=== PATIENT | female | born 1935 | race Caucasian/White ===

== ENCOUNTER 2016-10-18 17:51 | Inpatient (IN) | payer OTHER ==
[~2016-10-18] VITALS: Ht 165.1 cm; Wt 82.7 kg
[~2016-10-18 17:51] MED LIST: ALLOPURINOL300 MG PO; ATIVAN0.5 MG PO; BUSPAR5 MG PO; CALCITRATE + D1 EACH PO; CELEXA10 MG PO; CHILDREN'S ASPI81 M1 PO; COLACE100 MG PO; COLCRYS0.6 MG PO; DUONEB 2.5-0.5 M3 ML AEROSOL; Ecotrin PO; KEFLEX500 MG PO; LEVOTHYROXINE150 MCG PO; LITE COAT ASPI325 M1 PO; LOPRESSOR50 MG PO; LOSARTAN POTAS100 MG PO; LOSARTAN POTASS50 MG PO; METOPROLOL SUCC50 MG PO; METOPROLOL TART50 MG PO; MILK OF MAGNESI10 ML PO; PRAVASTATIN SOD80 MG PO; SENNA8.6 M1 PO; SIMVASTATIN20 MG PO; TAMIFLU30 MG PO; TYLENOL REGULA325 MG PO; UTYMAX POWDER1 EACH PO; Zyloprim PO
[2016-10-18 18:24] LABS: BASE EXCESS 3.9 mEq/L (-3 to +3); BICARBONATE 27.7 mEq/L (22-26); CARBOXY HGB 2.1 % (0-5); METHEMOGLOBIN 1.5 % (0-1.5); PCO2 38 mm Hg (35-45); PO2 121 mm Hg (80-100); pH 7.47 (7.35-7.45)
[2016-10-18 18:25] LABS: COMMENTS - BLOOD GASES A+C+; DEVICE SIMPLE MASK; O2 FLOW 3 L/MIN; SITE LR
[2016-10-18 18:41] LABS: CARBON DIOXIDE (BICARBONATE) 30.5 MEQ/L (20-31)
[2016-10-18 18:42] LABS: HEMATOCRIT 36.2 % (36.0-46.0); MCH 30.6 PG (29.0-34.0); MCHC 32.6 G/DL (30.0-36.0); MEAN PLAT.VOLUME 11.6 uM^3 (9.5-12.4); PLATELET COUNT 113 K/uL (156-360); RBC DIS.WIDTH-CV 14.4 % (11.8-14.6); RBC DIS.WIDTH-SD 47.7 % (39-53); RED BLOOD COUNT 3.85 M/uL (3.80-5.20); WHITE BLOOD COUNT 25.7 K/uL (4.1-10.2)
[2016-10-18 18:49] LABS: CHLORIDE 105 mEq/L (99-109); POTASSIUM 3.6 mEq/L (3.7-5.4); SODIUM 142 mEq/L (136-147)
[2016-10-18 18:50] LABS: GLUCOSE 229 mg/dL (70-99)
[2016-10-18 18:52] LABS: ANION GAP 12 MEQ/L (2-14)
[2016-10-18 18:54] LABS: GFR ESTIMATE (CALCULATED) 23 mL/min/
[2016-10-18 18:55] LABS: UREA NITROGEN (BUN) 57 mg/dL (9-23)
[2016-10-18 19:03] LABS: TROP-I INTERPRETATION NEGATIVE; TROPONIN-I 0.22 ng/mL (0.0-0.30)
[2016-10-18] MEDS ORDERED: TOPROL XL100 MG PO (19:30)
[2016-10-18] MEDS ORDERED: MIRALAX17 GM PO (19:30)
[2016-10-18] MEDS ORDERED: SENNA8.6 MG PO (19:31)
[2016-10-18] MEDS ORDERED: FLEET ENEMA-AD118 ML PR (19:33)
[2016-10-18] MEDS ORDERED: DUONEB 2.5-0.5 M3 ML AEROSOL (19:35)
[2016-10-18] MEDS ORDERED: LEVO-T175 MCG PO (19:39)
[2016-10-18] MEDS ORDERED: ROCEPHIN1000 MG IM (19:45)
[2016-10-18] MEDS ORDERED: MILK OF MAGN PO (19:48)
[2016-10-18 20:15] LABS: ADD MIUA? YES; BILIRUBIN SMALL; BLOOD LARGE; GLUCOSE (STRIP) NEGATIVE; KETONES TRACE; LEUKOCYTES MODERATE; NITRITE POSITIVE; PROTEIN (STRIP) 100; SPECIFIC GRAVITY 1.025 (1.000-1.030)
[2016-10-18 20:22] LABS: COLOR AMBER ((YELLOW))
[2016-10-18 20:59] LABS: AMORPHOUS URATES CRYSTALS 1+; BACTERIA 1+; CASTS PRESENT /LPF; CRYSTALS PRESENT; EPITHELIAL CELLS 3+; MUCUS TRACE; UCUL ADDED? NO; WHITE BLOOD CELLS 20-30 /HPF (0-5)
[2016-10-18 23:15] VITALS: BP 134/70
[2016-10-18 23:30] VITALS: BP 134/70
[2016-10-19 04:00] VITALS: BP 115/57
[2016-10-19 06:37] LABS: HEMATOCRIT 33.5 % (36.0-46.0); MCH 30.1 PG (29.0-34.0); MCHC 31.9 G/DL (30.0-36.0); MCV 94.1 FL (83-99); MEAN PLAT.VOLUME 12.2 uM^3 (9.5-12.4); PLATELET COUNT 102 K/uL (156-360); RBC DIS.WIDTH-CV 14.7 % (11.8-14.6); RBC DIS.WIDTH-SD 50.8 % (39-53); RED BLOOD COUNT 3.56 M/uL (3.80-5.20); WHITE BLOOD COUNT 18.1 K/uL (4.1-10.2)
[2016-10-19 07:03] LABS: ANION GAP 10 MEQ/L (2-14); CHLORIDE 112 MEQ/L (99-109); GFR ESTIMATE (CALCULATED) 23 mL/min/; POTASSIUM 3.3 MEQ/L (3.7-5.4); SAMPLE HEMOLYSIS CHECK 0; SAMPLE ICTERIC CHECK 0; SAMPLE LIPEMIA CHECK 0; SODIUM 146 MEQ/L (136-147); UREA NITROGEN (BUN) 59 mg/dL (9-23)
[2016-10-19 07:05] LABS: GLUCOSE 106 mg/dL (70-99)
[2016-10-19 08:30] VITALS: BP 118/58
[2016-10-19 10:48] LABS: MAGNESIUM 2.3 mg/dl (1.3-2.7)
[2016-10-19 12:00] VITALS: BP 142/71
[2016-10-19 16:00] VITALS: BP 154/69
[2016-10-19 17:43] LABS: UR CREATININE CONCENTRATION 136.5 MG/DL
[2016-10-19 20:25] VITALS: BP 137/74
[2016-10-19 21:37] LABS: METH RESISTANT S AUREUS PCR NEGATIVE (NEGATIVE)
[2016-10-19 21:40] LABS: PROBE CHECK PASS; SPECIMEN PROCESSING CONTROL PASS
[2016-10-19 23:55] VITALS: BP 147/68
[2016-10-20 04:00] VITALS: BP 153/68
[2016-10-20 07:15] LABS: EOSINOPHIL (%) 0.4 % (0-5); EOSINOPHIL COUNT 0.1 K/uL (0-0.3); HEMATOCRIT 32.4 % (36.0-46.0); IMMATURE GRANULOCYTE (%) 0.5 % (0.0-0.7); IMMATURE GRANULOCYTE COUNT 0.1 K/uL; LYMPHOCYTE COUNT 1.5 K/uL (1.0-2.8); MCH 30.4 PG (29.0-34.0); MCHC 32.4 G/DL (30.0-36.0); MCV 93.9 FL (83-99); MEAN PLAT.VOLUME 11.9 uM^3 (9.5-12.4); MONOCYTE (%) 6.4 % (3-12); MONOCYTE COUNT 0.9 K/uL (0-0.8); NEUTROPHIL (%) 81.6 % (45-76); NEUTROPHIL COUNT 11.4 K/uL (1.8-6.4); PLATELET COUNT 115 K/uL (156-360); RBC DIS.WIDTH-CV 14.8 % (11.8-14.6); RED BLOOD COUNT 3.45 M/uL (3.80-5.20)
[2016-10-20 07:59] LABS: ANION GAP 11 MEQ/L (2-14); CHLORIDE 113 MEQ/L (99-109); GLUCOSE 108 mg/dL (70-99); SAMPLE HEMOLYSIS CHECK 0; SAMPLE ICTERIC CHECK 0; SAMPLE LIPEMIA CHECK 0; SODIUM 147 MEQ/L (136-147); UREA NITROGEN (BUN) 54 mg/dL (9-23)
[2016-10-20 08:00] VITALS: BP 167/74
[2016-10-20 08:01] LABS: GFR ESTIMATE (CALCULATED) 33 mL/min/
[2016-10-20 11:37] VITALS: BP 148/67
[2016-10-20 16:30] VITALS: BP 184/85
[2016-10-20 19:08] VITALS: BP 172/76
[2016-10-20 23:35] VITALS: BP 185/81
[2016-10-21 04:26] VITALS: BP 149/81
[2016-10-21 06:43] LABS: EOSINOPHIL (%) 1.3 % (0-5); EOSINOPHIL COUNT 0.2 K/uL (0-0.3); HEMATOCRIT 33.3 % (36.0-46.0); IMMATURE GRANULOCYTE (%) 0.5 % (0.0-0.7); IMMATURE GRANULOCYTE COUNT 0.1 K/uL; LYMPHOCYTE COUNT 1.3 K/uL (1.0-2.8); MCH 30.4 PG (29.0-34.0); MCHC 32.7 G/DL (30.0-36.0); MCV 92.8 FL (83-99); MONOCYTE (%) 8.5 % (3-12); NEUTROPHIL (%) 78.4 % (45-76); NEUTROPHIL COUNT 9.4 K/uL (1.8-6.4); RBC DIS.WIDTH-CV 14.6 % (11.8-14.6); RBC DIS.WIDTH-SD 50.2 % (39-53); RED BLOOD COUNT 3.59 M/uL (3.80-5.20); WHITE BLOOD COUNT 12.1 K/uL (4.1-10.2)
[2016-10-21 06:58] LABS: MEAN PLAT.VOLUME 12.1 uM^3 (9.5-12.4)
[2016-10-21 07:00] LABS: PLATELET COUNT 155 K/uL (156-360)
[2016-10-21 07:10] LABS: ANION GAP 8 MEQ/L (2-14); CHLORIDE 113 MEQ/L (99-109); GFR ESTIMATE (CALCULATED) 38 mL/min/; GLUCOSE 142 mg/dL (70-99); POTASSIUM 3.7 MEQ/L (3.7-5.4); SAMPLE HEMOLYSIS CHECK 0; SAMPLE ICTERIC CHECK 0; SAMPLE LIPEMIA CHECK 0; SODIUM 145 MEQ/L (136-147); UREA NITROGEN (BUN) 38 mg/dL (9-23)
[2016-10-21 07:54] VITALS: BP 145/70
[2016-10-21 12:20] VITALS: BP 156/80
[2016-10-21 15:40] VITALS: BP 162/74
[2016-10-21 19:36] VITALS: BP 184/70
[2016-10-22] VITALS (10 sets, daily range): BP systolic 160–198; BP diastolic 68–87
[2016-10-22 06:59] LABS: HEMATOCRIT 32.4 % (36.0-46.0); MCH 30.2 PG (29.0-34.0); MCHC 32.7 G/DL (30.0-36.0); MCV 92.3 FL (83-99); MEAN PLAT.VOLUME 11.9 uM^3 (9.5-12.4); PLATELET COUNT 163 K/uL (156-360); RBC DIS.WIDTH-CV 14.6 % (11.8-14.6); RBC DIS.WIDTH-SD 49.6 % (39-53); RED BLOOD COUNT 3.51 M/uL (3.80-5.20); WHITE BLOOD COUNT 9.9 K/uL (4.1-10.2)
[2016-10-22 07:27] LABS: ANION GAP 9 MEQ/L (2-14); CHLORIDE 108 MEQ/L (99-109); GFR ESTIMATE (CALCULATED) 42 mL/min/; GLUCOSE 137 mg/dL (70-99); POTASSIUM 3.5 MEQ/L (3.7-5.4); SAMPLE HEMOLYSIS CHECK 0; SAMPLE ICTERIC CHECK 0; SAMPLE LIPEMIA CHECK 0; SODIUM 139 MEQ/L (136-147); UREA NITROGEN (BUN) 26 mg/dL (9-23)
[2016-10-22 07:31] LABS: EOSINOPHIL (%) 2.8 % (0-5); EOSINOPHIL COUNT 0.3 K/uL (0-0.3); IMMATURE GRANULOCYTE (%) 2.3 % (0.0-0.7); IMMATURE GRANULOCYTE COUNT 0.2 K/uL; LYMPHOCYTE COUNT 1.5 K/uL (1.0-2.8); MONOCYTE (%) 11.5 % (3-12); MONOCYTE COUNT 1.1 K/uL (0-0.8); NEUTROPHIL (%) 68.4 % (45-76); NEUTROPHIL COUNT 6.8 K/uL (1.8-6.4)
[2016-10-22 07:33] LABS: HEMATOLOGY COMMENT 1 SMEAR COMPATIBLE; USER ID SDF
[2016-10-23 04:27] VITALS: BP 172/77
[2016-10-23 06:38] LABS: ANION GAP 8 MEQ/L (2-14); CHLORIDE 111 MEQ/L (99-109); GFR ESTIMATE (CALCULATED) 42 mL/min/; GLUCOSE 124 mg/dL (70-99); POTASSIUM 3.7 MEQ/L (3.7-5.4); SAMPLE HEMOLYSIS CHECK 0; SAMPLE ICTERIC CHECK 0; SAMPLE LIPEMIA CHECK 0; SODIUM 141 MEQ/L (136-147); UREA NITROGEN (BUN) 19 mg/dL (9-23)
[2016-10-23 06:48] LABS: MAGNESIUM 1.8 mg/dl (1.3-2.7)
[2016-10-23 08:48] VITALS: BP 162/73
[2016-10-23 15:58] LABS: INFLUENZA A VIRAL ANTIGEN NEGATIVE; INFLUENZA B VIRAL ANTIGEN NEGATIVE
[2016-10-23 16:24] VITALS: BP 143/71
[2016-10-24] VITALS: BP 173/79
[2016-10-24 03:45] VITALS: BP 169/80
[2016-10-24 06:24] LABS: HEMATOCRIT 32.9 % (36.0-46.0); MCH 30.2 PG (29.0-34.0); MCHC 32.8 G/DL (30.0-36.0); MCV 91.9 FL (83-99); RBC DIS.WIDTH-CV 14.5 % (11.8-14.6); RBC DIS.WIDTH-SD 48.7 % (39-53); RED BLOOD COUNT 3.58 M/uL (3.80-5.20); WHITE BLOOD COUNT 12.1 K/uL (4.1-10.2)
[2016-10-24 06:45] LABS: MEAN PLAT.VOLUME 10.9 uM^3 (9.5-12.4)
[2016-10-24 07:01] LABS: ANION GAP 8 MEQ/L (2-14); CHLORIDE 108 MEQ/L (99-109); GFR ESTIMATE (CALCULATED) 57 mL/min/; GLUCOSE 111 mg/dL (70-99); POTASSIUM 3.7 MEQ/L (3.7-5.4); SAMPLE HEMOLYSIS CHECK 0; SAMPLE ICTERIC CHECK 0; SAMPLE LIPEMIA CHECK 0; SODIUM 139 MEQ/L (136-147); UREA NITROGEN (BUN) 12 mg/dL (9-23)
[2016-10-24 07:05] LABS: PLATELET COUNT 243 K/uL (156-360)
[2016-10-24 07:23] LABS: BASOPHIL COUNT 0.1 K/uL (0-0.1); EOSINOPHIL (%) 3.4 % (0-5); EOSINOPHIL COUNT 0.4 K/uL (0-0.3); HEMATOLOGY COMMENT 1 SMEAR COMPATIBLE; IMMATURE GRANULOCYTE (%) 3.8 % (0.0-0.7); IMMATURE GRANULOCYTE COUNT 0.5 K/uL; MONOCYTE (%) 9.6 % (3-12); MONOCYTE COUNT 1.2 K/uL (0-0.8); NEUTROPHIL (%) 65.9 % (45-76); USER ID SDF
[2016-10-24 07:41] LABS: INTERNAL CONTROL VALID? YES
[2016-10-24 07:44] VITALS: BP 179/80
[2016-10-24] MEDS ORDERED: ATIVAN0.5 MG PO (12:16)
[2016-10-24] MEDS ORDERED: CIPRO250 MG PO (12:19)
[2016-10-24] MEDS ORDERED: AMLODIPINE BESYL5 MG PO (12:44)
== END 2016-10-24 15:45 | DRG 871 ==
LOC: EME 17:51 → 3EAST 19:11 → EDOF 19:11 → 4EAST 19:11 → 3EAST 10-22 23:00
PROVIDERS: Emergency Medicine; Family Medicine; Internal Medicine
DX: A41.9 Sepsis, unspecified organism (principal); N17.0 Acute kidney failure with tubular necrosis; E87.0 Hyperosmolality and hypernatremia; E87.2 Acidosis; N39.0 Urinary tract infection, site not specified; D64.9 Anemia, unspecified; I10 Essential (primary) hypertension; F03.90 Unspecified dementia, unspecified severity, without behavioral disturbance, psychotic disturbance, mood disturbance, and anxiety; E03.9 Hypothyroidism, unspecified; Z86.73 Personal history of transient ischemic attack (TIA), and cerebral infarction without residual deficits; E78.5 Hyperlipidemia, unspecified; E87.6 Hypokalemia; I73.9 Peripheral vascular disease, unspecified; I77.89 Other specified disorders of arteries and arterioles; E83.39 Other disorders of phosphorus metabolism; E83.51 Hypocalcemia; R41.82 Altered mental status, unspecified; E86.0 Dehydration
CPT/HCPCS: 36600; 71020; 76770; 80048; 80048 91; 80069; 81003; 82330; 82436; 82570; 82803; 83605; 83735; 83880; 84156; 84300; 84484; 85025; 85025 91; 85027; 87040; 87449; 87502; 87641; 93005; 94640; 94799; 99202; 99281; 99285; J0360; J1650; J2543; J3480; J7030; J7050

== ENCOUNTER 2018-01-02 20:46 | Inpatient (IN) | payer OTHER ==
[~2018-01-02] VITALS: Ht 162.6 cm; Wt 77.5 kg
[~2018-01-02 20:46] MED LIST changes: +AMLODIPINE BESYL5 MG PO; +CIPRO250 MG PO; +FLEET ENEMA-AD118 ML PR; +LEVO-T175 MCG PO; +MILK OF MAGN PO; +MIRALAX17 GM PO; +ROCEPHIN1000 MG IM; +SENNA8.6 MG PO; +TOPROL XL100 MG PO
[2018-01-02 21:27] LABS: HEMATOCRIT 35.2 % (36.0-46.0); HEMOGLOBIN 11.7 G/DL (11.9-15.5); MCHC 33.2 G/DL (30.0-36.0); MCV 93.4 FL (83-99); PLATELET COUNT 154 K/uL (156-360); RBC DIS.WIDTH-CV 13.9 % (11.8-14.6); RBC DIS.WIDTH-SD 47.3 % (39-53); RED BLOOD COUNT 3.77 M/uL (3.80-5.20); WHITE BLOOD COUNT 24.5 K/uL (4.1-10.2)
[2018-01-02 21:43] LABS: CHLORIDE 109 mEq/L (99-109); POTASSIUM 3.5 mEq/L (3.7-5.4); SODIUM 144 mEq/L (136-147)
[2018-01-02 21:45] LABS: GLUCOSE 178 mg/dL (70-99)
[2018-01-02 21:48] LABS: CREATININE 1.6 mg/dL (0.6-1.3); GFR ESTIMATE (CALCULATED) 33 mL/min/
[2018-01-02 21:49] LABS: UREA NITROGEN (BUN) 41 mg/dL (9-23)
[2018-01-02 22:29] LABS: ABS NEUTROPHIL COUNT 23.1; ANISOCYTOSIS 1+; ATYPICAL LYMPHOCYTE 1.3 %; BAND NEUTROPHILS 15.6 % (0-8.0); EOSINOPHIL ABS CT 0; LYMPHOCYTES 2.2 % (15.0-45.0); MONOCYTES 2.2 % (0-9.0); PLAT.SUFFICIENCY ADEQUATE; POIKILOCYTOSIS 1+; POLYCHROMASIA 1+; SEG.NEUTROPHILS 78.7 % (46.0-76.0)
[2018-01-03 03:18] LABS: APPEARANCE TURBID ((CLEAR)); BILIRUBIN NEGATIVE; BLOOD MODERATE; COLOR AMBER ((YELLOW)); GLUCOSE (STRIP) NEGATIVE; KETONES NEGATIVE; LEUKOCYTES LARGE; NITRITE NEGATIVE; PROTEIN (STRIP) 100; SPECIFIC GRAVITY 1.018 (1.000-1.030); UROBILINOGEN 0.2 MG/DL (0.2-1.0)
[2018-01-03 03:31] LABS: BACTERIA 2+ /HPF; EPITHELIAL CELLS 1+ /HPF; MUCUS NONE SEEN /LPF; RED BLOOD CELLS 30-40 /HPF (0-5); UCUL ADDED? YES; WHITE BLOOD CELLS NONE SEEN /HPF (0-5)
[2018-01-03 03:32] LABS: COARSE GRANULAR CASTS 0-5 /LPF; FINE GRANULAR CASTS 0-5 /LPF
[2018-01-03 08:42] VITALS: BP 116/67
[2018-01-03] MEDS ORDERED: ATIVAN0.5 MG PO ×2 (09:34→09:35)
[2018-01-03] MEDS ORDERED: ARICEPT5 MG PO (09:37)
[2018-01-03 10:45] VITALS: BP 103/57
[2018-01-03 11:02] LABS: HEMATOCRIT 40.5 % (36.0-46.0); HEMOGLOBIN 12.7 G/DL (11.9-15.5); MCH 30.8 PG (29.0-34.0); MCHC 31.4 G/DL (30.0-36.0); PLATELET COUNT 135 K/uL (156-360); RBC DIS.WIDTH-CV 14.4 % (11.8-14.6); RBC DIS.WIDTH-SD 51.6 % (39-53); RED BLOOD COUNT 4.13 M/uL (3.80-5.20); WHITE BLOOD COUNT 20.5 K/uL (4.1-10.2)
[2018-01-03 11:29] VITALS: BP 103/57
[2018-01-03 11:31] LABS: ALKALINE PHOSPHATASE 76 IU/L (3-129); AST (GOT) 51 IU/L (2-34); CHLORIDE 109 MEQ/L (99-109); CREATININE 1.6 MG/DL (0.6-1.3); GFR ESTIMATE (CALCULATED) 33 mL/min/; GLUCOSE 83 mg/dL (70-99); POTASSIUM 4.4 MEQ/L (3.7-5.4); SODIUM 143 MEQ/L (136-147); TOTAL BILIRUBIN 0.6 MG/DL (0.0-1.0); TOTAL PROTEIN 5.9 G/DL (6.4-8.3); UREA NITROGEN (BUN) 39 mg/dL (9-23)
[2018-01-03 11:40] LABS: MCV 98.1 FL (83-99)
[2018-01-03 12:34] LABS: ALT (GPT) 17 IU/L (3-49)
[2018-01-03 15:00] VITALS: BP 88/52
[2018-01-03 20:00] VITALS: BP 85/55
[2018-01-03 22:04] LABS: INTER. NORMALIZED RATIO 1.2
[2018-01-03 22:06] LABS: PTT 27.9 SEC (25-37)
[2018-01-04 00:20] VITALS: BP 109/49
[2018-01-04 04:32] VITALS: BP 111/72
[2018-01-04 08:40] VITALS: BP 103/75
[2018-01-04 12:31] VITALS: BP 92/61
[2018-01-04 16:30] VITALS: BP 107/64
[2018-01-04 19:38] VITALS: BP 93/67
[2018-01-05] VITALS (7 sets, daily range): BP systolic 104–124; BP diastolic 58–76
[2018-01-06 03:28] VITALS: BP 112/77
[2018-01-06 06:19] LABS: BASOPHIL (%) 0.2 % (0-1); EOSINOPHIL (%) 0.4 % (0-5); EOSINOPHIL COUNT 0.1 K/uL (0-0.3); HEMATOCRIT 33.9 % (36.0-46.0); HEMOGLOBIN 10.8 G/DL (11.9-15.5); IMMATURE GRANULOCYTE (%) 0.7 % (0.0-0.7); LYMPHOCYTE (%) 9.1 % (15-42); LYMPHOCYTE COUNT 1.2 K/uL (1.0-2.8); MCH 29.7 PG (29.0-34.0); MCHC 31.9 G/DL (30.0-36.0); MONOCYTE (%) 9.2 % (3-12); MONOCYTE COUNT 1.2 K/uL (0-0.8); NEUTROPHIL (%) 80.4 % (45-76); NEUTROPHIL COUNT 10.7 K/uL (1.8-6.4); PLATELET COUNT 129 K/uL (156-360); RBC DIS.WIDTH-CV 14.6 % (11.8-14.6); RBC DIS.WIDTH-SD 49.6 % (39-53); RED BLOOD COUNT 3.64 M/uL (3.80-5.20); WHITE BLOOD COUNT 13.3 K/uL (4.1-10.2)
[2018-01-06 06:20] LABS: MCV 93.1 FL (83-99)
[2018-01-06 06:37] LABS: ALKALINE PHOSPHATASE 63 IU/L (3-129)
[2018-01-06 08:41] VITALS: BP 144/70
[2018-01-06 11:08] LABS: ALBUMIN 2.6 G/DL (3.2-4.8); ALT (GPT) 18 IU/L (3-49); CREATININE 1.4 MG/DL (0.6-1.3); GFR ESTIMATE (CALCULATED) 38 mL/min/; POTASSIUM 3.6 MEQ/L (3.7-5.4); TOTAL BILIRUBIN 0.5 MG/DL (0.0-1.0); UREA NITROGEN (BUN) 44 mg/dL (9-23)
[2018-01-06 11:13] LABS: AST (GOT) 19 IU/L (2-34); CHLORIDE 121 MEQ/L (99-109); GLUCOSE 130 mg/dL (70-99); SODIUM 152 MEQ/L (136-147)
[2018-01-06 11:48] VITALS: BP 124/80
[2018-01-06 14:28] VITALS: BP 132/80
[2018-01-06 19:16] VITALS: BP 128/76
[2018-01-06 22:48] VITALS: BP 121/73
[2018-01-07 03:54] VITALS: BP 130/74
[2018-01-07 07:34] VITALS: BP 140/74
[2018-01-07 08:14] LABS: BASOPHIL (%) 0.2 % (0-1); EOSINOPHIL (%) 2.9 % (0-5); EOSINOPHIL COUNT 0.4 K/uL (0-0.3); HEMATOCRIT 32.9 % (36.0-46.0); HEMOGLOBIN 10.5 G/DL (11.9-15.5); IMMATURE GRANULOCYTE (%) 1.3 % (0.0-0.7); LYMPHOCYTE (%) 9.9 % (15-42); LYMPHOCYTE COUNT 1.3 K/uL (1.0-2.8); MCH 30.5 PG (29.0-34.0); MCHC 31.9 G/DL (30.0-36.0); MCV 95.6 FL (83-99); MONOCYTE (%) 10.5 % (3-12); MONOCYTE COUNT 1.3 K/uL (0-0.8); NEUTROPHIL (%) 75.2 % (45-76); NEUTROPHIL COUNT 9.5 K/uL (1.8-6.4); PLATELET COUNT 150 K/uL (156-360); RBC DIS.WIDTH-CV 14.9 % (11.8-14.6); RBC DIS.WIDTH-SD 52.2 % (39-53); RED BLOOD COUNT 3.44 M/uL (3.80-5.20); WHITE BLOOD COUNT 12.6 K/uL (4.1-10.2)
[2018-01-07 08:47] LABS: CHLORIDE 126 MEQ/L (99-109); CREATININE 1.2 MG/DL (0.6-1.3); GFR ESTIMATE (CALCULATED) 46 mL/min/; GLUCOSE 141 mg/dL (70-99); POTASSIUM 3.9 MEQ/L (3.7-5.4); SODIUM 155 MEQ/L (136-147); UREA NITROGEN (BUN) 36 mg/dL (9-23)
[2018-01-07 10:24] LABS: BASE EXCESS -0.7 mEq/L (-3 to +3); BICARBONATE 24.2 mEq/L (22-26); CARBOXY HGB 2.2 % (0-5); METHEMOGLOBIN 2.4 % (0-1.5); PCO2 40 mm Hg (35-45); PO2 97 mm Hg (80-100); pH 7.39 (7.35-7.45)
[2018-01-07 10:25] LABS: COMMENTS - BLOOD GASES A+C+; DEVICE NC; O2 FLOW 2 L/MIN; SITE LR; TOTAL RESP RATE 16 resp/min
[2018-01-07 12:00] VITALS: BP 143/64
[2018-01-07 15:44] VITALS: BP 128/76
[2018-01-07 20:12] VITALS: BP 108/60
[2018-01-08 00:38] VITALS: BP 128/78
[2018-01-08 04:19] VITALS: BP 138/72
[2018-01-08 06:20] LABS: BASOPHIL (%) 0.3 % (0-1); EOSINOPHIL (%) 4.6 % (0-5); EOSINOPHIL COUNT 0.5 K/uL (0-0.3); HEMATOCRIT 33.5 % (36.0-46.0); HEMOGLOBIN 10.7 G/DL (11.9-15.5); IMMATURE GRANULOCYTE (%) 1.6 % (0.0-0.7); LYMPHOCYTE (%) 13.2 % (15-42); LYMPHOCYTE COUNT 1.5 K/uL (1.0-2.8); MCH 30.5 PG (29.0-34.0); MCHC 31.9 G/DL (30.0-36.0); MCV 95.4 FL (83-99); MONOCYTE (%) 9.8 % (3-12); MONOCYTE COUNT 1.1 K/uL (0-0.8); NEUTROPHIL (%) 70.5 % (45-76); NEUTROPHIL COUNT 8.2 K/uL (1.8-6.4); RED BLOOD COUNT 3.51 M/uL (3.80-5.20); WHITE BLOOD COUNT 11.5 K/uL (4.1-10.2)
[2018-01-08 06:28] LABS: PLATELET COUNT 202 K/uL (156-360)
[2018-01-08 06:49] LABS: CHLORIDE 121 MEQ/L (99-109); CREATININE 1.1 MG/DL (0.6-1.3); GFR ESTIMATE (CALCULATED) 51 mL/min/; GLUCOSE 128 mg/dL (70-99); POTASSIUM 3.8 MEQ/L (3.7-5.4); SODIUM 155 MEQ/L (136-147); UREA NITROGEN (BUN) 30 mg/dL (9-23)
[2018-01-08 07:29] VITALS: BP 134/72
[2018-01-08 12:49] VITALS: BP 148/64
[2018-01-08 20:26] VITALS: BP 106/58
[2018-01-08 23:28] VITALS: BP 123/65
[2018-01-09 03:50] VITALS: BP 129/62
[2018-01-09 07:10] LABS: BASOPHIL (%) 0.3 % (0-1); EOSINOPHIL (%) 3.6 % (0-5); EOSINOPHIL COUNT 0.4 K/uL (0-0.3); HEMATOCRIT 34.2 % (36.0-46.0); HEMOGLOBIN 10.9 G/DL (11.9-15.5); IMMATURE GRANULOCYTE (%) 1.6 % (0.0-0.7); LYMPHOCYTE (%) 14.5 % (15-42); LYMPHOCYTE COUNT 1.5 K/uL (1.0-2.8); MCH 30.6 PG (29.0-34.0); MCHC 31.9 G/DL (30.0-36.0); MCV 96.1 FL (83-99); MONOCYTE (%) 8.9 % (3-12); MONOCYTE COUNT 0.9 K/uL (0-0.8); NEUTROPHIL (%) 71.1 % (45-76); NEUTROPHIL COUNT 7.1 K/uL (1.8-6.4); PLATELET COUNT 255 K/uL (156-360); RBC DIS.WIDTH-CV 14.6 % (11.8-14.6); RED BLOOD COUNT 3.56 M/uL (3.80-5.20)
[2018-01-09 07:30] LABS: CHLORIDE 120 MEQ/L (99-109); GFR ESTIMATE (CALCULATED) 57 mL/min/; GLUCOSE 155 mg/dL (70-99); POTASSIUM 3.6 MEQ/L (3.7-5.4); SODIUM 156 MEQ/L (136-147); UREA NITROGEN (BUN) 25 mg/dL (9-23)
[2018-01-09 09:22] VITALS: BP 136/72
[2018-01-09 12:13] VITALS: BP 140/78
[2018-01-09 15:39] VITALS: BP 138/70
[2018-01-09 20:07] VITALS: BP 135/75
[2018-01-10] VITALS: BP 115/57
[2018-01-10 03:55] VITALS: BP 125/84
[2018-01-10 07:08] LABS: BASOPHIL (%) 0.3 % (0-1); EOSINOPHIL (%) 3.5 % (0-5); EOSINOPHIL COUNT 0.3 K/uL (0-0.3); HEMATOCRIT 34.8 % (36.0-46.0); HEMOGLOBIN 11.1 G/DL (11.9-15.5); IMMATURE GRANULOCYTE (%) 2.2 % (0.0-0.7); LYMPHOCYTE (%) 17.9 % (15-42); LYMPHOCYTE COUNT 1.6 K/uL (1.0-2.8); MCH 30.4 PG (29.0-34.0); MCHC 31.9 G/DL (30.0-36.0); MCV 95.3 FL (83-99); MONOCYTE (%) 7.6 % (3-12); MONOCYTE COUNT 0.7 K/uL (0-0.8); NEUTROPHIL (%) 68.5 % (45-76); NEUTROPHIL COUNT 6.2 K/uL (1.8-6.4); PLATELET COUNT 310 K/uL (156-360); RBC DIS.WIDTH-CV 14.6 % (11.8-14.6); RBC DIS.WIDTH-SD 50.5 % (39-53); RED BLOOD COUNT 3.65 M/uL (3.80-5.20); WHITE BLOOD COUNT 9.1 K/uL (4.1-10.2)
[2018-01-10 07:12] LABS: CHLORIDE 117 MEQ/L (99-109); CREATININE 0.9 MG/DL (0.6-1.3); GFR ESTIMATE (CALCULATED) > 59 mL/min/; POTASSIUM 3.5 MEQ/L (3.7-5.4); SODIUM 154 MEQ/L (136-147); UREA NITROGEN (BUN) 19 mg/dL (9-23)
[2018-01-10 07:16] LABS: GLUCOSE 108 mg/dL (70-99)
[2018-01-10 11:13] VITALS: BP 106/62
[2018-01-10 16:00] VITALS: BP 108/62
[2018-01-10 19:00] VITALS: BP 125/72
[2018-01-11 00:15] VITALS: BP 128/67
[2018-01-11 03:20] VITALS: BP 122/78
[2018-01-11 08:12] LABS: CHLORIDE 115 MEQ/L (99-109); GFR ESTIMATE (CALCULATED) 57 mL/min/; GLUCOSE 112 mg/dL (70-99); POTASSIUM 3.4 MEQ/L (3.7-5.4); SODIUM 153 MEQ/L (136-147); UREA NITROGEN (BUN) 16 mg/dL (9-23)
[2018-01-11 09:10] VITALS: BP 128/78
[2018-01-11 12:33] VITALS: BP 128/59
[2018-01-11 17:43] VITALS: BP 129/58
[2018-01-12 00:05] VITALS: BP 115/57
[2018-01-12 07:01] LABS: BASOPHIL (%) 0.6 % (0-1); BASOPHIL COUNT 0.1 K/uL (0-0.1); EOSINOPHIL (%) 2.5 % (0-5); EOSINOPHIL COUNT 0.3 K/uL (0-0.3); HEMATOCRIT 31.7 % (36.0-46.0); HEMOGLOBIN 10.2 G/DL (11.9-15.5); IMMATURE GRANULOCYTE (%) 1.4 % (0.0-0.7); LYMPHOCYTE (%) 15.9 % (15-42); LYMPHOCYTE COUNT 1.7 K/uL (1.0-2.8); MCH 30.6 PG (29.0-34.0); MCHC 32.2 G/DL (30.0-36.0); MCV 95.2 FL (83-99); MONOCYTE (%) 5.6 % (3-12); MONOCYTE COUNT 0.6 K/uL (0-0.8); NEUTROPHIL COUNT 7.8 K/uL (1.8-6.4); PLATELET COUNT 292 K/uL (156-360); RBC DIS.WIDTH-CV 14.5 % (11.8-14.6); RBC DIS.WIDTH-SD 49.6 % (39-53); RED BLOOD COUNT 3.33 M/uL (3.80-5.20); WHITE BLOOD COUNT 10.5 K/uL (4.1-10.2)
[2018-01-12 07:27] LABS: CHLORIDE 110 MEQ/L (99-109); CREATININE 0.9 MG/DL (0.6-1.3); GFR ESTIMATE (CALCULATED) > 59 mL/min/; GLUCOSE 111 mg/dL (70-99); POTASSIUM 3.4 MEQ/L (3.7-5.4); SODIUM 148 MEQ/L (136-147); UREA NITROGEN (BUN) 14 mg/dL (9-23)
[2018-01-12 07:38] VITALS: BP 108/55
[2018-01-12 16:00] VITALS: BP 109/55
[2018-01-12 23:55] VITALS: BP 116/69
[2018-01-13 06:13] LABS: BASOPHIL (%) 0.3 % (0-1); EOSINOPHIL (%) 2.2 % (0-5); EOSINOPHIL COUNT 0.3 K/uL (0-0.3); HEMATOCRIT 31.9 % (36.0-46.0); HEMOGLOBIN 10.6 G/DL (11.9-15.5); IMMATURE GRANULOCYTE (%) 0.9 % (0.0-0.7); LYMPHOCYTE (%) 11.9 % (15-42); LYMPHOCYTE COUNT 1.4 K/uL (1.0-2.8); MCH 31.1 PG (29.0-34.0); MCHC 33.2 G/DL (30.0-36.0); MCV 93.5 FL (83-99); MONOCYTE (%) 5.9 % (3-12); MONOCYTE COUNT 0.7 K/uL (0-0.8); NEUTROPHIL (%) 78.8 % (45-76); NEUTROPHIL COUNT 9.3 K/uL (1.8-6.4); PLATELET COUNT 292 K/uL (156-360); RBC DIS.WIDTH-CV 14.3 % (11.8-14.6); RBC DIS.WIDTH-SD 48.2 % (39-53); RED BLOOD COUNT 3.41 M/uL (3.80-5.20); WHITE BLOOD COUNT 11.9 K/uL (4.1-10.2)
[2018-01-13 06:46] LABS: CHLORIDE 106 MEQ/L (99-109); GFR ESTIMATE (CALCULATED) 57 mL/min/; GLUCOSE 110 mg/dL (70-99); SODIUM 141 MEQ/L (136-147); UREA NITROGEN (BUN) 15 mg/dL (9-23)
[2018-01-13 06:50] LABS: POTASSIUM 4.4 MEQ/L (3.7-5.4)
[2018-01-13 10:12] VITALS: BP 118/56
[2018-01-13] MEDS ORDERED: ATIVAN0.5 MG PO ×2 (12:25)
[2018-01-13] MEDS ORDERED: BACTRIM,SEPT1 TABLET PO (12:25)
[2018-01-13 17:04] VITALS: BP 129/65
== END 2018-01-13 17:00 | DRG 871 ==
LOC: 2EAST → EME 20:46 → EDOF 01-03 04:09 → 2EAST 01-03 04:09 → ENRESERV 01-03 04:12 → 2EASTP 01-03 08:33 → 2EAST 01-03 08:36 → ENRESERV 01-03 11:04 → 4EAST 01-03 11:09 → ENRESERV 01-06 07:45 → 2EAST 01-06 14:26 → ENPENDDIS 01-13 → 2EAST 01-13 17:00
PROVIDERS: Family Medicine; Internal Medicine
PROC: 0T9430Z Drainage of Left Kidney Pelvis with Drainage Device, Percutaneous Approach (ICD-10-PCS; principal; 2018-01-03)
PROC: BT121ZZ Fluoroscopy of Left Kidney using Low Osmolar Contrast (ICD-10-PCS; 2018-01-09)
DX: A41.51 Sepsis due to Escherichia coli [E. coli] (principal); R65.21 Severe sepsis with septic shock; N13.6 Pyonephrosis; J96.21 Acute and chronic respiratory failure with hypoxia; N17.9 Acute kidney failure, unspecified; E87.2 Acidosis; A40.0 Sepsis due to streptococcus, group A; E87.0 Hyperosmolality and hypernatremia; E87.70 Fluid overload, unspecified; E87.6 Hypokalemia; E86.0 Dehydration; R41.0 Disorientation, unspecified; I10 Essential (primary) hypertension; E78.5 Hyperlipidemia, unspecified; E03.9 Hypothyroidism, unspecified; F03.90 Unspecified dementia, unspecified severity, without behavioral disturbance, psychotic disturbance, mood disturbance, and anxiety; J43.9 Emphysema, unspecified; D63.8 Anemia in other chronic diseases classified elsewhere; F32.9 Major depressive disorder, single episode, unspecified; M10.9 Gout, unspecified; Z16.12 Extended spectrum beta lactamase (ESBL) resistance; Z66 Do not resuscitate; E66.9 Obesity, unspecified; Z68.29 Body mass index [BMI] 29.0-29.9, adult; Z86.73 Personal history of transient ischemic attack (TIA), and cerebral infarction without residual deficits; Z87.440 Personal history of urinary (tract) infections; Z87.442 Personal history of urinary calculi; Z99.3 Dependence on wheelchair; Z79.82 Long term (current) use of aspirin
CPT/HCPCS: 36600; 50433; 50434; 70450; 71045; 74176; 80048; 80053; 81003; 82803; 83605; 85025; 85027; 85610; 85730; 87040; 87070; 87075; 87076; 87077; 87086; 87186; 87205; 87641; 87801; 92526 GN; 92610 GN; 94640; 94640 76; 94799; 99202; 99281; 99285; A6214; C1769; J1335; J1644; J1940; J1956; J2060; J3010; J3370; J3480; J7030; J7050; J7070

== ENCOUNTER 2018-02-11 19:32 | Emergency (ER) | payer OTHER ==
[~2018-02-11] VITALS: Ht 162.6 cm; Wt 73.5 kg
[~2018-02-11 19:32] MED LIST changes: +ARICEPT5 MG PO; +BACTRIM,SEPT1 TABLET PO
[2018-02-11 22:43] VITALS: BP 139/81
== END 2018-02-11 23:00 ==
LOC: EME → EDBD 19:32 → EME 19:32
DX: T83.032A Leakage of nephrostomy catheter, initial encounter (principal); N20.0 Calculus of kidney; F03.90 Unspecified dementia, unspecified severity, without behavioral disturbance, psychotic disturbance, mood disturbance, and anxiety; I10 Essential (primary) hypertension; E78.5 Hyperlipidemia, unspecified; E03.9 Hypothyroidism, unspecified; Z86.73 Personal history of transient ischemic attack (TIA), and cerebral infarction without residual deficits; Z79.82 Long term (current) use of aspirin
CPT/HCPCS: 99281; 99284

== ENCOUNTER 2018-02-25 16:40 | Emergency (ER) | payer OTHER ==
[~2018-02-25] VITALS: Ht 167.6 cm; Wt 70.9 kg
[2018-02-25 17:49] LABS: HEMATOCRIT 38.8 % (36.0-46.0); HEMOGLOBIN 13.1 G/DL (11.9-15.5); MCH 30.8 PG (29.0-34.0); MCHC 33.8 G/DL (30.0-36.0); MCV 91.3 FL (83-99); RBC DIS.WIDTH-CV 14.1 % (11.8-14.6); RED BLOOD COUNT 4.25 M/uL (3.80-5.20); WHITE BLOOD COUNT 8.5 K/uL (4.1-10.2)
[2018-02-25 17:54] LABS: PLATELET COUNT 298 K/uL (156-360)
[2018-02-25 17:58] LABS: CHLORIDE 104 mEq/L (99-109); POTASSIUM 4.4 mEq/L (3.7-5.4); SODIUM 141 mEq/L (136-147)
[2018-02-25 17:59] LABS: GLUCOSE 98 mg/dL (70-99)
[2018-02-25 18:03] LABS: CREATININE 0.8 mg/dL (0.6-1.3); GFR ESTIMATE (CALCULATED) > 59 mL/min/
[2018-02-25 18:04] LABS: UREA NITROGEN (BUN) 26 mg/dL (9-23)
[2018-02-25 18:23] LABS: APPEARANCE TURBID ((CLEAR)); BILIRUBIN NEGATIVE; BLOOD SMALL; COLOR AMBER ((YELLOW)); GLUCOSE (STRIP) NEGATIVE; KETONES NEGATIVE; LEUKOCYTES LARGE; NITRITE NEGATIVE; PROTEIN (STRIP) 100; SPECIFIC GRAVITY 1.017 (1.000-1.030); UROBILINOGEN 0.2 MG/DL (0.2-1.0)
[2018-02-25 18:58] LABS: BACTERIA 2+ /HPF; EPITHELIAL CELLS RARE /HPF; MUCUS NONE SEEN /LPF; RED BLOOD CELLS RARE /HPF (0-5); UCUL ADDED? YES; WHITE BLOOD CELLS TNTC /HPF (0-5)
[2018-02-25 18:59] LABS: TRIPLE PHOSPHATE CRYSTALS 2+ /HPF
[2018-02-25 21:14] VITALS: BP 142/67
== END 2018-02-25 21:18 ==
LOC: EME 16:40
PROVIDERS: Emergency Medicine
DX: N99.522 Malfunction of incontinent external stoma of urinary tract (principal); N39.0 Urinary tract infection, site not specified; F03.90 Unspecified dementia, unspecified severity, without behavioral disturbance, psychotic disturbance, mood disturbance, and anxiety; I10 Essential (primary) hypertension; J44.9 Chronic obstructive pulmonary disease, unspecified; E78.5 Hyperlipidemia, unspecified; E03.9 Hypothyroidism, unspecified; F32.9 Major depressive disorder, single episode, unspecified; Z86.73 Personal history of transient ischemic attack (TIA), and cerebral infarction without residual deficits; Z87.440 Personal history of urinary (tract) infections
CPT/HCPCS: 80048; 81003; 85027; 87077; 87086; 87186; 99281; 99284

== ENCOUNTER 2018-02-27 17:58 | Observation (INO) | payer OTHER ==
[~2018-02-27] VITALS: Ht 162.6 cm; Wt 72.1 kg
[2018-02-27 20:00] LABS: BASOPHIL (%) 0.8 % (0-1); BASOPHIL COUNT 0.1 K/uL (0-0.1); EOSINOPHIL (%) 3.5 % (0-5); EOSINOPHIL COUNT 0.3 K/uL (0-0.3); HEMATOCRIT 36.9 % (36.0-46.0); HEMOGLOBIN 12.6 G/DL (11.9-15.5); IMMATURE GRANULOCYTE (%) 0.2 % (0.0-0.7); LYMPHOCYTE (%) 23.9 % (15-42); LYMPHOCYTE COUNT 2.2 K/uL (1.0-2.8); MCH 30.8 PG (29.0-34.0); MCHC 34.1 G/DL (30.0-36.0); MCV 90.2 FL (83-99); MONOCYTE (%) 8.1 % (3-12); MONOCYTE COUNT 0.7 K/uL (0-0.8); NEUTROPHIL (%) 63.5 % (45-76); NEUTROPHIL COUNT 5.8 K/uL (1.8-6.4); PLATELET COUNT 280 K/uL (156-360); RBC DIS.WIDTH-CV 13.8 % (11.8-14.6); RBC DIS.WIDTH-SD 45.3 % (39-53); RED BLOOD COUNT 4.09 M/uL (3.80-5.20); WHITE BLOOD COUNT 9.2 K/uL (4.1-10.2)
[2018-02-27 20:16] LABS: CHLORIDE 103 mEq/L (99-109); POTASSIUM 4.2 mEq/L (3.7-5.4); SODIUM 138 mEq/L (136-147)
[2018-02-27 20:18] LABS: GLUCOSE 119 mg/dL (70-99)
[2018-02-27 20:22] LABS: CREATININE 0.7 mg/dL (0.6-1.3); GFR ESTIMATE (CALCULATED) > 59 mL/min/; UREA NITROGEN (BUN) 19 mg/dL (9-23)
[2018-02-27] MEDS ORDERED: NORVASC10 MG PO (21:35)
[2018-02-27] MEDS ORDERED: ATIVAN0.5 MG PO ×2 (21:36)
[2018-02-27] MEDS ORDERED: ZINC50 M3 PO (21:38)
[2018-02-27] MEDS ORDERED: TYLENOL REGULA325 MG PO (21:39)
[2018-02-27] MEDS ORDERED: DULCOLAX10 MG PR (21:39)
[2018-02-27] MEDS ORDERED: PHILLIPS'400 MG/5 M PO (21:40)
[2018-02-27] MEDS ORDERED: SANTYL30 GM TP (21:41)
[2018-02-27] MEDS ORDERED: BETADINE SOLUT480 ML TP (21:41)
[2018-02-28 00:24] VITALS: BP 143/68
[2018-02-28 05:33] LABS: BASOPHIL (%) 0.8 % (0-1); BASOPHIL COUNT 0.1 K/uL (0-0.1); EOSINOPHIL (%) 3.5 % (0-5); EOSINOPHIL COUNT 0.3 K/uL (0-0.3); HEMOGLOBIN 11.6 G/DL (11.9-15.5); IMMATURE GRANULOCYTE (%) 0.6 % (0.0-0.7); LYMPHOCYTE (%) 22.9 % (15-42); MCH 29.7 PG (29.0-34.0); MCHC 32.2 G/DL (30.0-36.0); MCV 92.3 FL (83-99); MONOCYTE (%) 9.3 % (3-12); MONOCYTE COUNT 0.8 K/uL (0-0.8); NEUTROPHIL (%) 62.9 % (45-76); NEUTROPHIL COUNT 5.5 K/uL (1.8-6.4); PLATELET COUNT 280 K/uL (156-360); RBC DIS.WIDTH-CV 14.2 % (11.8-14.6); RBC DIS.WIDTH-SD 47.3 % (39-53); WHITE BLOOD COUNT 8.8 K/uL (4.1-10.2)
[2018-02-28 06:12] LABS: CHLORIDE 103 MEQ/L (99-109); CREATININE 0.6 MG/DL (0.6-1.3); GFR ESTIMATE (CALCULATED) > 59 mL/min/; GLUCOSE 111 mg/dL (70-99); POTASSIUM 3.7 MEQ/L (3.7-5.4); SODIUM 137 MEQ/L (136-147); UREA NITROGEN (BUN) 14 mg/dL (9-23)
[2018-02-28 09:56] VITALS: BP 122/70
[2018-02-28 13:03] VITALS: BP 128/60
[2018-02-28 19:33] VITALS: BP 144/70
[2018-02-28 20:57] LABS: APPEARANCE TURBID ((CLEAR)); BILIRUBIN NEGATIVE; BLOOD SMALL; COLOR AMBER ((YELLOW)); GLUCOSE (STRIP) NEGATIVE; KETONES NEGATIVE; LEUKOCYTES LARGE; NITRITE POSITIVE; PROTEIN (STRIP) 100; SPECIFIC GRAVITY 1.015 (1.000-1.030); UROBILINOGEN 0.2 MG/DL (0.2-1.0)
[2018-02-28 21:57] LABS: WHITE BLOOD CELLS TNTC /HPF (0-5)
[2018-02-28 23:39] VITALS: BP 120/56
[2018-03-01 08:22] VITALS: BP 144/67
[2018-03-01] MEDS ORDERED: BACTRIM,SEPT1 TABLE1 PO (15:04)
== END 2018-03-01 17:11 ==
LOC: EME 17:58 → EDOF 21:44 → 4SOUTH 21:44 → EDOF 21:44 → CANRESERV 21:45 → ENRESERV 21:45 → EDOF 22:09 → ENRESERV 22:13 → 4SOUTH 02-28 00:17
PROVIDERS: Emergency Medicine; Family Medicine
DX: T83.022A Displacement of nephrostomy catheter, initial encounter (principal); N39.0 Urinary tract infection, site not specified; B96.20 Unspecified Escherichia coli [E. coli] as the cause of diseases classified elsewhere; N13.6 Pyonephrosis; Z16.12 Extended spectrum beta lactamase (ESBL) resistance; N20.0 Calculus of kidney; Z87.442 Personal history of urinary calculi; L89.313 Pressure ulcer of right buttock, stage 3; L89.150 Pressure ulcer of sacral region, unstageable; I10 Essential (primary) hypertension; Z86.73 Personal history of transient ischemic attack (TIA), and cerebral infarction without residual deficits; R32 Unspecified urinary incontinence; F03.90 Unspecified dementia, unspecified severity, without behavioral disturbance, psychotic disturbance, mood disturbance, and anxiety; R45.1 Restlessness and agitation; Z99.3 Dependence on wheelchair; M10.9 Gout, unspecified; E03.9 Hypothyroidism, unspecified; E78.5 Hyperlipidemia, unspecified
CPT/HCPCS: 80048; 81003; 85025; A6260; G0378; J1335; J1650; J7040; J7050